=== PATIENT | female | born 1990 | race Caucasian/White ===

== ENCOUNTER 2023-03-04 08:22 | Observation (INO) | payer MEDICAID ==
[~2023-03-04] VITALS: Ht 160 cm; Wt 48.5 kg
[2023-03-04] MEDS ORDERED: SODIUM CHLORIDE 0.9% 1,000 ML IV ONE (09:15)
[2023-03-04 10:13] LABS: CLARITY URINE TURBID (CLEAR); COLOR URINE YELLOW (YELLOW); GLUCOSE URINE NEGATIVE (NEGATIVE); KETONES URINE NEGATIVE (NEGATIVE); LEUKOCYTE ESTERASE URINE NEGATIVE (NEGATIVE); NITRITE URINE NEGATIVE (NEGATIVE); OCCULT BLOOD URINE NEGATIVE (NEGATIVE); PROTEIN URINE NEGATIVE (NEGATIVE); SPECIFIC GRAVITY URINE 1.019 (1.005-1.030); UROBILINOGEN URINE 0.2 E.U./dL (0.2-1.0)
[2023-03-04 10:16] LABS: BACTERIA URINE NONE SEEN; RBC URINE NONE SEEN /hpf (0-2); SQUAMOUS EPITHELIAL CELL URINE NONE SEEN /lpf (RARE/1+); WBC URINE 0-2 /hpf (0-2); YEAST URINE NONE SEEN
[2023-03-04 10:31] LABS: MUCUS URINE 1+ /lpf (< = 2+)
[2023-03-04 10:32] LABS: AMORPHOUS SEDIMENT URINE 2+ /lpf
== END 2023-03-04 11:15 | disposition home or self-care (01) ==
LOC: 8 EST LDRP 08:22
PROVIDERS: ADMIT Specialist; ATTEND Specialist
DX: O26.892 Other specified pregnancy related conditions, second trimester (principal); R30.0 Dysuria; O36.8120 Decreased fetal movements, second trimester, not applicable or unspecified; O62.9 Abnormality of forces of labor, unspecified; Z3A.20 20 weeks gestation of pregnancy
CPT/HCPCS: 59025; 81003; 76805; G0378 ×2; 99281